=== PATIENT | female | born 1935 | race Caucasian/White ===

== ENCOUNTER → 2020-05-22 10:29 | Outpatient (CLI) | payer MEDICARE, OTHER, SELFPAY ==
--- NOTE | 2020-05-22 10:33 | DI.RAD.S_ITS ---
PROCEDURE: XR LUMBAR SPINE MIN 4V INDICATIONS: LOW BACK PAIN TECHNIQUE: 5 views of the lumbar spine were acquired. COMPARISON: None. FINDINGS: Bones: 5 nonrib-bearing vertebrae are present. Dextroscoliotic curvature centered at L3. Extensive multilevel degenerative disc space loss and lower lumbar facet arthropathy. No vertebral body compression fractures. No suspicious bony lesions. 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 Soft tissues: Overlying bowel gas pattern is normal. No suspicious soft tissue calcifications. Oblique images: No pars defects. IMPRESSION: Extensive degenerative disc disease and facet arthropathy. Dextrocurvature. No acute compression fractures. Dictated by: Robe Johnson M.D. on 05/22/2020 at 10:49 Approved by: Robe Johnson M.D. on 05/22/2020 at 10:54
== END ==
PROVIDERS: PCP Family Medicine; Referring Provider Physical Medicine & Rehabilitation; Visit Provider Physical Medicine & Rehabilitation
DX: M54.5 Low back pain (principal); M47.816 Spondylosis without myelopathy or radiculopathy, lumbar region; M51.36 Other intervertebral disc degeneration, lumbar region; M41.9 Scoliosis, unspecified
CPT/HCPCS: 72110; 99215

== ENCOUNTER → 2020-05-29 11:39 | Outpatient (CLI) | payer MEDICARE, OTHER, SELFPAY ==
[2020-05-31 08:21] LABS: COVID19 Sendout Not Detected (Not Detect)
== END ==
PROVIDERS: PCP Family Medicine; Visit Provider Physician Assistant
DX: Z11.59 Encounter for screening for other viral diseases (principal)
CPT/HCPCS: 87635

== ENCOUNTER 2020-06-01 10:17 | Outpatient (CLI) | payer MEDICARE, OTHER, SELFPAY ==
[2020-06-01] VITALS (9 sets, daily range): BP systolic 115–174; BP diastolic 56–75; PULSE 57–61; RESP 11–16; TEMP 35.9; O2SAT 94–98
--- NOTE | 2020-06-01 10:19 | DI.RAD.S_ITS ---
PROCEDURE: PAIN L/S FACET INJ/BLK 1ST KACEY COMPARISON: [facility], CR, XR LUMBAR SPINE MIN 4V, 05/22/2020, 10:22. Outside Facility, RG, MRI L-SPINE W/O CONTRAST, 03/21/2020, 11:16. Outside Facility, RG, CT L SPINE WITHOUT CONTRAST, 07/14/2019, 8:24. INDICATIONS: SPONDYLOSIS FINDINGS: 6 intraoperative fluoroscopy images demonstrate facet joint injection at L4-L5 and L5-S1 bilaterally. IMPRESSION: Fluoroscopy for pain management. Dictated by: Tania Perez M.D. on 06/01/2020 at 12:47 Approved by: Tania Perez M.D. on 06/01/2020 at 12:50
[2020-06-01] MEDS: fentaNYL 100 MCG/2 ML INJ 50 MCG IV (11:40)
[2020-06-01] MEDS: MIDAZOLAM 5 MG/5 ML VIAL IV (11:40)
[2020-06-01] MEDS: IOPAMIDOL 15 ML VIAL 3 ML INJ (11:45)
[2020-06-01] MEDS: BUPIVACAINE 0.5% (PF) VIAL 2 ML INJ (11:46)
[2020-06-01] MEDS: LIDOCAINE 1% 20 ML 10 ML INJ (11:46)
[2020-06-01] MEDS: BETAMETHASONE 30 MG/5 ML MDV 12 MG INJ (11:46)
--- NOTE | 2020-06-01 11:57 | P.PCN_ITS ---
Date/Time/Diagnoses Date of procedure: 06/01/20 Time of procedure: 11:57 Pre-procedure diagnosis: 1. FACET ARTHROPATHY 2. AXIAL LBP 3. MULTILEVEL DDD Post-procedure diagnosis: same Procedure Notes Procedure: 1. FLUOROSCOPICALLY GUIDED CONTRAST CONTROLLED FACET JOINT INJECTIONS BILATERAL L4/5, L5/S1 Indications: Chrissie is referred by Dr. Piedra for treatment of Axial LBP Physician: Prabhakar Lucio Total Fluoroscopy time (seconds): 10 Total sedation minutes: 14 Complications: none Procedure in detail & Post-procedure care: FINDINGS Multilevel Facet Arthropathy with Clinically significant axial LBP DESCRIPTION OF PROCEDURE Fluoroscopically guided, contrast-controlled bilateral L4/5, L5/S1 facet joint injections. Following review of allergy and review of potential side effects and complications, including, but not necessarily limited to, infection, allergic reaction, local tissue breakdown, stroke, temporary or permanent nerve injury, paralysis, and possible , the patient indicated that the patient understood and agreed to proceed. An informed consent document was signed by the patient, witnessed by a nurse, and placed in the patient's chart. Additionally, other treatment options including medications, modalities, and physical therapy were reviewed with the patient. After review of previous anaesthesic history and IV conscious sedation the patient was deemed safe to proceed with today?s procedure with IV conscious sedation as ASA class II designation. Safety time-out was performed to confirm patient ID, procedure to be performed and site of procedure. IV sedation was accomplished with a combination of 3mg of Versed and 50mcg of Fentanyl was administered by the RN after DO order, titrated to patient comfort during the course of the procedure while the patient remained responsive to all verbal commands In the prone position, following sterile prep and drape of the lumbar region, the posterior aspect of the L4/5, L5/S1 facet joints were identified fluoroscopically. The skin was anesthetized via a 25-gauge 1.5inch needle with 1% lidocaine solution into the corresponding facet joints. At this point, a 22- gauge 3.5-inch spinal needle was atraumatically introduced and advanced under fluoroscopic guidance into the corresponding facet joints. Following negative aspiration, injections of approximately 0.2cc of Isovue 200 confirmed inte rarticular placement without vascular uptake. The identical procedure was then performed at the L4/5, L5/S1 facet joints on the left. Radiological data, including multiple fluoroscopic views of the lumbosacral spine, reveal a spinal needle at the L4/5, L5/S1 facet joints bilaterally. Subsequent views show flow of contrast material both superiorly and inferiorly within the joint space without vascular or intrathecal uptake. At this point, a total of 0.5cc including a mixture of 0.25cc Marcaine and 0.25cc betamethasone was injected without complication into each of the corresponding facet joints. The patient tolerated the procedure well without signs or symptoms of complications prior to transfer to the recovery area continued monitoring without incident. The patient was then transferred to the recovery area where they were observed for an appropriate period of time after the injection. The patient reported a VAS score of 7 prior to the procedure and a post- procedure VAS of 0. POST OP INSTRUCTIONS The patient was provided a Pain Log to continue to record their response to the target-specific procedure prior to follow-up visit with their referring physician. Additionally, specific post-injection care instructions and a contact number to our office were provided if concerns arise regarding possible complications associated with the procedure are suspected.
== END 2020-06-01 12:32 | disposition home or self-care (01) ==
PROVIDERS: PCP Family Medicine; Referring Provider Physical Medicine & Rehabilitation; Visit Provider Physical Medicine & Rehabilitation
DX: M47.816 Spondylosis without myelopathy or radiculopathy, lumbar region (principal); M47.817 Spondylosis without myelopathy or radiculopathy, lumbosacral region; M54.5 Low back pain; M51.36 Other intervertebral disc degeneration, lumbar region; M51.37 Other intervertebral disc degeneration, lumbosacral region
CPT/HCPCS: 64493; 64494; 99152; J0702; J2250; J3010

== ENCOUNTER → 2020-09-18 14:39 | Outpatient (CLI) | payer MEDICARE, OTHER, SELFPAY ==
[2020-09-18 16:52] LABS: COVID19 -Nasal RAPID Negative (Negative)
== END ==
PROVIDERS: PCP Family Medicine; Visit Provider Physical Medicine & Rehabilitation
DX: Z20.822 Contact with and (suspected) exposure to COVID-19 (principal)
CPT/HCPCS: 87635; C9803

== ENCOUNTER 2020-09-19 12:30 | Outpatient (CLI) | payer MEDICARE, OTHER, SELFPAY ==
[2020-09-19] VITALS (8 sets, daily range): BP systolic 122–207; BP diastolic 58–78; PULSE 60–64; RESP 12–20; TEMP 36.9; O2SAT 96–100
--- NOTE | 2020-09-19 12:32 | DI.RAD.S_ITS ---
PROCEDURE: PAIN SI JOINT INJECTION KACYE COMPARISON: None. INDICATIONS: SACROCOCYGEAL DISORDER FINDINGS: On these intraprocedural images, spinal needles can be seen involving the inferior aspects of both sacroiliac joints. The appropriate positions of the tips of the needles was confirmed by injection of a small amount of iodinated contrast. IMPRESSION: Intraprocedural examination within normal limits. Dictated by: Feroz Saucedo M.D. on 09/19/2020 at 13:14 Approved by: Feroz Saucedo M.D. on 09/19/2020 at 13:15
[2020-09-19] MEDS: MIDAZOLAM 5 MG/5 ML VIAL IV (13:10)
[2020-09-19] MEDS: fentaNYL 100 MCG/2 ML INJ 50 MCG IV (13:10)
[2020-09-19] MEDS: BUPIVACAINE 0.5% (PF) VIAL 5 ML INJ (13:20)
[2020-09-19] MEDS: IOPAMIDOL 15 ML VIAL 3 ML INJ (13:22)
[2020-09-19] MEDS: BETAMETHASONE 30 MG/5 ML MDV 12 MG INJ (13:22)
--- NOTE | 2020-09-19 13:29 | PM.PROC.IR.1 ---
Date/Time/Diagnoses Date of procedure: 09/19/20 Time of procedure: 13:29 Pre-procedure diagnosis: Sacroiliac joint pain/DJD Post-procedure diagnosis: same Procedure Notes Procedure: Fluoroscopic guided contrast controlled bilateral sacroiliac joint injection Indications: Chrissie is referred by Dr. Piedra for treatment of bilateral sacroiliac joint DJD Physician: Prabhakar Lucio Total Fluoroscopy time (seconds): 18 Total sedation minutes: 16 Complications: none Procedure in detail & Post-procedure care: Description of procedure Fluoroscopic guided, contrast controlled bilateral sacroiliac joint injection Following review of allergies and review of potential side effects and complications, including, but not necessarily limited to, infection, allergic reaction, local tissue breakdown, temporary as well as permanent nerve injury, paralysis, stroke and possible , the patient indicated that they understood and agreed to proceed. An informed consent was signed by the patient, witnessed by a nurse, and placed in the patient's chart. Additionally, other treatment options including modalities, medications, and physical therapy were reviewed with the patient. After review of previous anaesthesic history and IV conscious sedation the patient was deemed safe to proceed with today?s procedure with IV conscious sedation as ASA class II designation. Safety time-out was performed to confirm patient ID, procedure to be performed and site of procedure. IV sedation was accomplished with a combination of 2mg Versed and 50mcg of Fentanyl were administered by the RN after DO order, titrated to patient comfort during the course of the procedure while the patient remained responsive to all verbal commands In the prone position following sterile prep and drape of the pelvic region, the hyper lucency on in the inferior aspect of the sacroiliac joint was identified fluoroscopically the skin was anesthetized be a 25 gauge 1.5 inch needle with approximately 2cc of 1% lidocaine solution. At this point, a 22 gauge 3 in spinal needle was atraumatically introduced and advanced under fluoroscopic guidance into the inferior aspect of the right sacroiliac joint. Following negative aspiration, approximately 0.3cc of Isovue-300 was injected confirming intra-articular placement without vascular uptake. Radiographic data, including multiple fluoroscopic views of the pelvis, reveals a spinal needle in the sacroiliac joint hyper lucent zone. Subsequent view show flow contrast tear superiorly and inferiorly within the joint capsule without vascular intrathecal uptake. At this point a total of 1cc of 0.5% Marcaine was combined with 1cc of 6mg of betamethasone was injected without incident. Attention was then refocused the left sacroiliac joint where the procedure was replicated. The procedure tolerated the procedure well without signs or symptoms of complications prior to transfer to the recovery area continued monitoring without incident. The patient was then transferred to the recovery area with a bur observed for an appropriate time after the injection. The patient reverted a vas score of 7 prior to the procedure and post-procedure vas of 1. Postop instructions The patient was provided with a pain like to continue to record the patient's response to the target specific procedure prior to the patient's follow-up visit with the referring physician. Additionally, specific post injection care instructions and a contact number to our office were provided if concerns arise regarding the possible complications associated with procedure are suspected.
== END 2020-09-19 13:50 | disposition home or self-care (01) ==
LOC: RAD 12:30
PROVIDERS: PCP Family Medicine; Referring Provider Physical Medicine & Rehabilitation; Visit Provider Physical Medicine & Rehabilitation
DX: M53.3 Sacrococcygeal disorders, not elsewhere classified (principal); M46.1 Sacroiliitis, not elsewhere classified
CPT/HCPCS: 27096; 99152; J0702; J2250; J3010

== ENCOUNTER 2021-01-30 10:18 | Outpatient (CLI) | payer MEDICARE, OTHER, SELFPAY ==
[2021-01-30] VITALS (8 sets, daily range): BP systolic 105–149; BP diastolic 53–67; PULSE 56–63; RESP 11–20; TEMP 36.3; O2SAT 93–100
--- NOTE | 2021-01-30 10:19 | DI.RAD.S_ITS ---
PROCEDURE: PAIN L/S TRANSFORAMINAL INJECT INDICATIONS: SPONDYLOSIS COMPARISON: [facility], XA, PAIN SI JOINT INJECTION KACYE, 09/19/2020, 13:16. FINDINGS: Fluoroscopic spot filming was performed to verify placement of a spinal needle at the L5-S1 level, as labeled on the films. Appropriate location of the needle tip was confirmed by injection of iodinated contrast. IMPRESSION: No significant intraprocedural abnormality. Dictated by: Feroz Saucedo M.D. on 01/30/2021 at 11:08 Approved by: Feroz Saucedo M.D. on 01/30/2021 at 11:08
[2021-01-30] MEDS: fentaNYL 100 MCG/2 ML INJ 50 MCG IV (11:00)
[2021-01-30] MEDS: MIDAZOLAM 5 MG/5 ML VIAL IV (11:00)
[2021-01-30] MEDS: BUPIVACAINE 0.25% (PF) VIAL 2 ML INJ (11:05)
[2021-01-30] MEDS: IOPAMIDOL 15 ML VIAL 3 ML INJ (11:05)
[2021-01-30] MEDS: DEXAMETHASONE 10 MG/ML VIAL 20 MG INJ (11:05)
[2021-01-30] MEDS: BETAMETHASONE 30 MG/5 ML MDV 6 MG INJ (11:05)
--- NOTE | 2021-01-30 11:14 | P.PCN_ITS ---
Date/Time/Diagnoses Date of procedure: 01/30/21 Time of procedure: 11:14 Pre-procedure diagnosis: FORAMINAL STENOSIS WITH LE SYMPTOMS Post-procedure diagnosis: same Procedure Notes Procedure: 1. FLUOROSCOPICALLY GUIDED CONTRAST CONTROLLED TRANSFORAMINAL EPIDURAL STEROID INJECTION - RIGHT L5/S1 TFESI Indications: Chrissie is referred by Dr. Piedra for treatment of Foraminal Stenosis with Right LE Symptoms Physician: Prabhakar Lucio Total Fluoroscopy time (seconds): 11 Total sedation minutes: 14 Complications: none Procedure in detail & Post-procedure care: FINDINGS Foraminal Nerve Root Compression secondary to disc disease and facet hypertrophy DESCRIPTION OF PROCEDURE Following review of allergy and review of potential side effects and complications, including, but not necessarily limited to, infection, allergic reaction, local tissue breakdown, stroke, temporary or permanent nerve injury, paralysis, and possible , the patient indicated that the patient understood and agreed to proceed. An informed consent document was signed by the patient, witnessed by a nurse, and placed in the patient's chart. Additionally, other treatment options including medications, modalities, and physical therapy were reviewed with the patient. After review of previous anaesthesic history and IV conscious sedation the patient was deemed safe to proceed with today?s procedure with IV conscious sedation as ASA class II designation. Safety time-out was performed to confirm patient ID, procedure to be performed and site of procedure. IV sedation was accomplished with a combination of 2mg of Versed and 50mcg of Fentanyl was administered by the RN after DO order, titrated to patient comfort during the course of the procedure while the patient remained responsive to all verbal commands In the prone position following sterile prep and drape of the lumbar region, the right L5/S1 posterior neuroforamen was identified fluoroscopically. The skin was anesthetized via a 25-gauge 1.5-inch needle with 1% lidocaine solution. At this point, a 25-gauge 3.5-inch spinal needle was atraumatically introduced and advanced under fluoroscopic guidance through the posterior right L5/S1 neuroforamen to approximately the anterior aspect of the canal. Depth was confirmed on lateral view. Following negative aspiration, injection of approximately 1.5cc of Isovue 200 under live fluoroscopy in the AP view confirmed excellent flow along the nerve root, into the epidural space without vascular or intrathecal uptake observed Radiological data, including multiple fluoroscopic views of the lumbosacral spine, reveal a spinal needle at the right L5/S1 posterior neuroforamen. Subsequent views show flow of contrast material flowing superiorly and inferiorly along the nerve root confirming epidural flow. Subsequently, a test dose of 1.5 cc of 1% lidocaine solution was administered and patient was observed for two minutes for signs or symptoms of complications, including abdominal pain, shortness of breath, bilateral upper or lower extremity weakness, nausea and vomiting, prior to steroid injection. At this point, a total of 3cc or 20mg of dexamethasone and 6mg of betamethasone was injected without incident. The procedure tolerated the procedure well without signs or symptoms of complications prior to transfer to the recovery area continued monitoring without incident. The patient was then transferred to the recovery area where they were observed for an appropriate time after the injection. The patient reported a VAS score of 7 prior to the procedure and a post- procedure VAS of 0. POST OP INSTRUCTIONS The patient was provided a Pain Log to continue to record their response to the target-specific procedure prior to follow-up visit with their referring physician. Additionally, specific post-injection care instructions and a contact number to our office were provided if concerns arise regarding possible complications associated with the procedure are suspected.
== END 2021-01-30 11:35 | disposition home or self-care (01) ==
LOC: RAD 10:19
PROVIDERS: PCP Family Medicine; Referring Provider Physical Medicine & Rehabilitation; Visit Provider Physical Medicine & Rehabilitation
DX: M48.07 Spinal stenosis, lumbosacral region (principal); M51.17 Intervertebral disc disorders with radiculopathy, lumbosacral region
CPT/HCPCS: 64483; 99152; J0702; J1100; J2250; J3010

== ENCOUNTER 2021-05-31 10:14 | Outpatient (CLI) | payer MEDICARE, OTHER, SELFPAY ==
[2021-05-31] VITALS (9 sets, daily range): BP systolic 96–142; BP diastolic 52–65; PULSE 59–62; RESP 10–19; TEMP 36.6; O2SAT 93–100
--- NOTE | 2021-05-31 10:15 | DI.RAD.S_ITS ---
PROCEDURE: PAIN L INTERLAMINAR/CAUDAL INJ INDICATIONS: SPONDYLOSIS COMPARISON: [facility], , PAIN L/S TRANSFORAMINAL INJECT, 01/30/2021, 11:02. FINDINGS: Fluoroscopic spot filming was performed to verify placement of a spinal needle on the right at the L2-L3 level, as labeled on the films. Appropriate location of the needle tip was confirmed by injection of iodinated contrast. IMPRESSION: Intraprocedural examination within normal limits. Dictated by: Feroz Saucedo M.D. on 05/31/2021 at 11:52 Approved by: Feroz Saucedo M.D. on 05/31/2021 at 11:53
[2021-05-31] MEDS: MIDAZOLAM 5 MG/5 ML VIAL IV (11:20)
[2021-05-31] MEDS: fentaNYL 100 MCG/2 ML INJ 50 MCG IV (11:20)
[2021-05-31] MEDS: BUPIVACAINE 0.25% (PF) VIAL 2 ML INJ (11:23)
[2021-05-31] MEDS: IOPAMIDOL 15 ML VIAL 3 ML INJ (11:24)
[2021-05-31] MEDS: BETAMETHASONE 30 MG/5 ML MDV 6 MG INJ (11:24)
[2021-05-31] MEDS: DEXAMETHASONE 10 MG/ML VIAL 20 MG INJ (11:25)
--- NOTE | 2021-05-31 11:30 | P.PCN_ITS ---
Date/Time/Diagnoses Date of procedure: 05/31/21 Time of procedure: 11:30 Pre-procedure diagnosis: 1. HNP WITH RADICULAR FEATURES, 2. MULTILEVEL CENTRAL STENOSIS, Post-procedure diagnosis: same Procedure Notes Procedure: 1. FLUOROSCOPICALLY GUIDED CONTRAST CONTROLLED INTERLAMINAR EPIDURAL STEROID INJECTION - L2/3 Indications: Chrissie is referred by Dr. Piedra for treatment of Bilateral Foraminal Stenosis L>R LE symptoms. Physician: Prabhakar Lucio Total Fluoroscopy time (seconds): 8 Total sedation minutes: 7 Complications: none Procedure in detail & Post-procedure care: FINDINGS Multilevel Central Spinal Stenosis with Nerve Root Compression DESCRIPTION OF PROCEDURE Fluoroscopically guided, contrast-controlled L2/3 translaminar epidural steroid injection. Following review of allergy and review of potential side effects and complications, including, but not necessarily limited to, infection, allergic reaction, local tissue breakdown, temporary as well as permanent nerve injury, paralysis, stroke and possible , the patient indicated that the patient understood and agreed to proceed. An informed consent document was signed by the patient, witnessed by a nurse, and placed in the patient's chart. Additionally, other treatment options including modalities, medications, and physical therapy were reviewed with the patient. After review of previous anaesthesic history and IV conscious sedation the patient was deemed safe to proceed with today?s procedure with IV conscious sedation as ASA class II designation. Safety time-out was performed to confirm patient ID, procedure to be performed and site of procedure. IV sedation was accomplished with a combination of 2mg Versed and 50mcg of Fentanyl administered by the RN after DO order, titrated to patient comfort during the course of the procedure while the patient remained responsive to all verbal commands. In the prone position, following sterile prep and drape of the lumbar region,the L2/3 translaminar space was identified fluoroscopically. The skin was anesthetized via a 25-gauge, 1.5-inch needle with 1% lidocaine solution. At this point, a 22-gauge short bevel spinal needle was atraumatically introduced and advanced under fluoroscopic guidance into the region of the L2/3 translaminar space. Depth was confirmed on lateral view. Radiological data, including multiple fluoroscopic views of the lumbar spine, reveal a spinal needle at the L2/3 translaminar space. Lateral views then show placement of the needle in the epidural space. Subsequent views show contrast material flowing superiorly and inferiorly in the epidural space. No vascular or intrathecal uptake is observed. At this point, using loss of resistance technique with saline and air, the epidural space was entered. This was confirmed following negative aspiration with injection of approximately 1.5 cc of Isovue 200, showing excellent epidural flow without vascular or intrathecal uptake. At this point, 1 cc of 1% lidocaine solution combined with 4cc or 20mg of dexamethasone and 12mg of betamethasone was injected without incident. The patient tolerated the procedure well without signs or symptoms of complic ations prior to transfer to the recovery area continued monitoring without incident. The patient was then transferred to the recovery area where they were observed for an appropriate period of time after the injection. The patient reported a VAS score of 6 prior to the procedure and a post-procedure VAS of 0. POST OP INSTRUCTIONS The patient was provided a Pain Log to continue to record their response to the target-specific procedure prior to follow-up visit with their referring physician. Additionally, specific post-injection care instructions and a contact number to our office were provided if concerns arise regarding possible complications associated with the procedure are suspected.
== END 2021-05-31 11:55 | disposition home or self-care (01) ==
LOC: RAD 10:15
PROVIDERS: PCP Family Medicine; Referring Provider Physical Medicine & Rehabilitation; Visit Provider Physical Medicine & Rehabilitation
DX: M51.16 Intervertebral disc disorders with radiculopathy, lumbar region (principal); M48.061 Spinal stenosis, lumbar region without neurogenic claudication
CPT/HCPCS: 62323; J0702; J1100; J2250; J3010

== ENCOUNTER → 2021-12-10 09:29 | Outpatient (CLI) | payer MEDICARE, OTHER, SELFPAY ==
[2021-12-10 12:23] LABS: COVID19 -Nasal RAPID Negative (Negative)
== END ==
PROVIDERS: PCP Family Medicine; Visit Provider Physical Medicine & Rehabilitation
DX: Z20.822 Contact with and (suspected) exposure to COVID-19 (principal)
CPT/HCPCS: 87635; C9803

== ENCOUNTER 2021-12-11 08:09 | Outpatient (CLI) | payer MEDICARE, OTHER, SELFPAY ==
[2021-12-11] VITALS (8 sets, daily range): BP systolic 116–162; BP diastolic 55–86; PULSE 55–61; RESP 16–20; TEMP 36.7; O2SAT 98–100
--- NOTE | 2021-12-11 08:11 | DI.RAD.S_ITS ---
PROCEDURE: PAIN L/S TRANSFORAMINAL INJECT INDICATIONS: SPONDYLOSIS COMPARISON: None. FINDINGS: Fluoroscopic spot filming was performed to verify placement of spinal needles at the right L5-S1 neural foramen level(s), as labeled on the films. Appropriate location(s) of the needle tip(s) was confirmed by injection of iodinated contrast. IMPRESSION: Access needle tip at the right L5-S1 neural foramen for transforaminal epidural steroid injection. Dictated by: Chanda Arellano MD, PhD on 12/11/2021 at 12:31 Approved by: Chanda Arellano MD, PhD on 12/11/2021 at 12:32
[2021-12-11] MEDS: MIDAZOLAM 2 MG/2 ML VIAL IV (09:37)
[2021-12-11] MEDS: IOPAMIDOL 15 ML VIAL 3 ML INJ (09:41)
[2021-12-11] MEDS: BUPIVACAINE 0.25% (PF) VIAL 2 ML INJ (09:41)
[2021-12-11] MEDS: BETAMETHASONE 30 MG/5 ML MDV 6 MG INJ (09:41)
[2021-12-11] MEDS: DEXAMETHASONE 10 MG/ML VIAL 20 MG INJ (09:42)
--- NOTE | 2021-12-11 09:55 | P.PCN_ITS ---
Date/Time/Diagnoses Date of procedure: 12/11/21 Time of procedure: 09:55 Pre-procedure diagnosis: FORAMINAL STENOSIS WITH LE SYMPTOMS Post-procedure diagnosis: same Procedure Notes Procedure: 1. FLUOROSCOPICALLY GUIDED CONTRAST CONTROLLED TRANSFORAMINAL EPIDURAL STEROID INJECTION - RIGHT L5/S1 TFESI Indications: Chrissie is referred by Dr. Piedra for treatment of Foraminal Stenosis with Right LE Symptoms Physician: Prabhakar Lucio Total Fluoroscopy time (seconds): 8 Total sedation minutes: 11 Complications: none Procedure in detail & Post-procedure care: FINDINGS Foraminal Nerve Root Compression secondary to disc disease and facet hypertrophy DESCRIPTION OF PROCEDURE Following review of allergy and review of potential side effects and complications, including, but not necessarily limited to, infection, allergic r eaction, local tissue breakdown, stroke, temporary or permanent nerve injury, paralysis, and possible , the patient indicated that the patient understood and agreed to proceed. An informed consent document was signed by the patient, witnessed by a nurse, and placed in the patient's chart. Additionally, other treatment options including medications, modalities, and physical therapy were reviewed with the patient. After review of previous anaesthesic history and IV conscious sedation the patient was deemed safe to proceed with today?s procedure with IV conscious sedation as ASA class II designation. Safety time-out was performed to confirm patient ID, procedure to be performed and site of procedure. IV sedation was accomplished with a combination of 2mg of Versed was administered by the RN after DO order, titrated to patient comfort during the course of the procedure while the patient remained responsive to all verbal commands In the prone position following sterile prep and drape of the lumbar region, the right L5/S1 posterior neuroforamen was identified fluoroscopically. The skin was anesthetized via a 25-gauge 1.5-inch needle with 1% lidocaine solution. At this point, a 25-gauge 3.5-inch spinal needle was atraumatically introduced and advanced under fluoroscopic guidance through the posterior right L5/S1 neuroforamen to approximately the anterior aspect of the canal. Depth was confirmed on lateral view. Following negative aspiration, injection of approximately 1.5cc of Isovue 200 under live fluoroscopy in the AP view confirmed excellent flow along the nerve root, into the epidural space without vascular or intrathecal uptake observed Radiological data, including multiple fluoroscopic views of the lumbosacral spine, reveal a spinal needle at the right L5/S1 posterior neuroforamen. Subsequent views show flow of contrast material flowing superiorly and inferiorly along the nerve root confirming epidural flow. Subsequently, a test dose of 1.5 cc of 1% lidocaine solution was administered and patient was observed for two minutes for signs or symptoms of complications, including abdominal pain, shortness of breath, bilateral upper or lower extre mity weakness, nausea and vomiting, prior to steroid injection. At this point, a total of 3cc or 20mg of dexamethasone and 6mg of betamethasone was injected without incident. The procedure tolerated the procedure well without signs or symptoms of complications prior to transfer to the recovery area continued monitoring without incident. The patient was then transferred to the recovery area where they were observed for an appropriate time after the injection. The patient reported a VAS score of 7 prior to the procedure and a post- procedure VAS of 0. POST OP INSTRUCTIONS The patient was provided a Pain Log to continue to record their response to the target-specific procedure prior to follow-up visit with their referring physician. Additionally, specific post-injection care instructions and a contact number to our office were provided if concerns arise regarding possible complications associated with the procedure are suspected.
== END 2021-12-11 10:15 | disposition home or self-care (01) ==
LOC: RAD 08:10
PROVIDERS: PCP Family Medicine; Referring Provider Physical Medicine & Rehabilitation; Visit Provider Physical Medicine & Rehabilitation
DX: M48.07 Spinal stenosis, lumbosacral region (principal); M51.17 Intervertebral disc disorders with radiculopathy, lumbosacral region
CPT/HCPCS: 64483; 99152; J0702; J1100; J2250

== ENCOUNTER 2022-08-08 10:16 | Outpatient (CLI) | payer MEDICARE, OTHER, SELFPAY ==
[2022-08-08] VITALS (7 sets, daily range): BP systolic 122–164; BP diastolic 59–80; PULSE 59–63; RESP 13–20; TEMP 35.9; O2SAT 96–100
--- NOTE | 2022-08-08 10:18 | DI.RAD.S_ITS ---
PROCEDURE: PAIN SI JOINT INJECTION INDICATIONS: SACROILIAC DISORDER COMPARISON: [facility], XR LUMBAR SPINE MIN 4V, 05/22/2020, 10:22. Outside Facility, [facility], MRI L-SPINE W/O CONTRAST, 11/19/2020, 15:26. FINDINGS: Fluoroscopic spot filming was performed to verify placement of spinal needles at the right SI level(s), as labeled on the films. Appropriate location(s) of the needle tip(s) was confirmed by injection of iodinated contrast. IMPRESSION: Fluoroscopy for pain management. Dictated by: Tania Perez M.D. on 08/08/2022 at 15:17 Approved by: Tania Perez M.D. on 08/08/2022 at 15:19
[2022-08-08] MEDS: MIDAZOLAM 2 MG/2 ML VIAL IV (11:31)
[2022-08-08] MEDS: IOPAMIDOL 15 ML VIAL 3 ML INJ (11:37)
[2022-08-08] MEDS: BETAMETHASONE 30 MG/5 ML MDV 12 MG INJ (11:37)
[2022-08-08] MEDS: BUPIVACAINE 0.5% (PF) 30 ML VIAL INJ (11:37)
--- NOTE | 2022-08-08 11:47 | P.PCN_ITS ---
Date/Time/Diagnoses Date of procedure: 08/08/22 Time of procedure: 11:50 Pre-procedure diagnosis: Sacroiliac joint pain/DJD Post-procedure diagnosis: same Procedure Notes Procedure: Fluoroscopically guided contrast controlled right sacroiliac joint injection Indications: Chrissie is referred by WILLIAM Salazar for treatment of right sacroiliac joint DJD Physician: Prabhakar Lucio Total Fluoroscopy time (seconds): 12 Total sedation minutes: 10 Complications: none Procedure in detail & Post-procedure care: DESCRIPTION OF PROCEDURE Fluoroscopically guided, contrast controlled right sacroiliac joint injection Following review of allergies and review of potential side effects and complications, including, but not necessarily limited to, infection, allergic reaction, local tissue breakdown, temporary as well as permanent nerve injury, paralysis, stroke and possible , the patient indicated that they understood and agreed to proceed. An informed consent was signed by the patient, witnessed by a nurse, and placed in the patient's chart. Additionally, other treatment options including modalities, medications, and physical therapy were reviewed with the patient. After review of previous anaesthesic history and IV conscious sedation the patient was deemed safe to proceed with today?s procedure with IV conscious sedation as ASA class II designation. Safety time-out was performed to confirm patient ID, procedure to be performed and site of procedure. IV sedation was accomplished with a combination of 2mg of Versed was administered by the RN after DO order, titrated to patient comfort during the course of the procedure while the patient remained responsive to all verbal commands In the prone position following sterile prep and drape of the pelvic region, the hyper lucency on in the inferior aspect of the sacroiliac joint was identified fluoroscopically the skin was anesthetized with a 25 gauge 1.5 needle with approximately 2 cc of 1% lidocaine solution. At this point, a 22 gauge 3in spi nal needle was atraumatically introduced and advanced under fluoroscopic guidance into the inferior aspect of the right sacroiliac joint. Following negative aspiration, approximately 0.3cc of Isovue-300 was injected confirming intra-articular placement without vascular uptake. Radiographic data, including multiple fluoroscopic views of the pelvis, reveals a spinal needle in the sacroiliac joint hyper lucent zone. Subsequent view show flow contrast tear superiorly and inferiorly within the joint capsule without vascular intrathecal uptake. At this point a total of 1cc of 0.5% Marcaine was combined with 1cc of 6mg of betamethasone was injected without incident. The procedure tolerated the procedure well without signs or symptoms of complications prior to transfer to the recovery area continued monitoring without incident. The patient was then transferred to the recovery area with a bur observed for an appropriate time after the injection. The patient reverted a vas score of 7 prior to the procedure and post-procedure vas of 1. POSTOP INSTRUCTIONS The patient was provided with a pain like to continue to record the patient's response to the target specific procedure prior to the patient's follow-up visit with the referring physician. Additionally, specific post injection care instructions and a contact number to our office were provided if concerns arise regarding the possible complications associated with procedure are suspected.
== END 2022-08-08 12:04 | disposition home or self-care (01) ==
LOC: RAD 10:17
PROVIDERS: PCP Physician Assistant; Referring Provider Physical Medicine & Rehabilitation; Visit Provider Physical Medicine & Rehabilitation
DX: M53.3 Sacrococcygeal disorders, not elsewhere classified (principal); M46.1 Sacroiliitis, not elsewhere classified
CPT/HCPCS: 27096; 99152; J0702; J2250

== ENCOUNTER 2022-12-19 09:53 | Outpatient (CLI) | payer MEDICARE, OTHER, SELFPAY ==
[2022-12-19] VITALS (7 sets, daily range): BP systolic 129–165; BP diastolic 58–102; PULSE 61–66; RESP 15–22; TEMP 36.5; O2SAT 95–99
--- NOTE | 2022-12-19 09:54 | DI.RAD.S_ITS ---
PROCEDURE: PAIN SI JOINT INJECTION INDICATIONS: SACROILIAC DISORDER COMPARISON: [facility], , PAIN SI JOINT INJECTION, 08/08/2022, 12:35. FINDINGS: On these intraprocedural images, there is a spinal needle seen overlying the inferior aspect of the right sacroiliac joint. Appropriate position of the tip of the needle was confirmed by injection of a small amount of iodinated contrast. IMPRESSION: Successful sacroiliac joint injection. Dictated by: Feroz Saucedo M.D. on 12/19/2022 at 18:24 Approved by: Feroz Saucedo M.D. on 12/19/2022 at 18:24
[2022-12-19] MEDS: MIDAZOLAM 2 MG/2 ML VIAL IV (11:06)
[2022-12-19] MEDS: BETAMETHASONE 30 MG/5 ML MDV 12 MG INJ (11:16)
[2022-12-19] MEDS: BUPIVACAINE 0.5% (PF) 10 ML VIAL 2 ML INJ (11:16)
[2022-12-19] MEDS: IOPAMIDOL 15 ML VIAL 3 ML INJ (11:17)
--- NOTE | 2022-12-19 11:18 | PM.PROC.IR.1 ---
Date/Time/Diagnoses Date of procedure: 12/19/22 Time of procedure: 11:18 Pre-procedure diagnosis: Sacroiliac joint pain/DJD Post-procedure diagnosis: same Procedure Notes Procedure: Fluoroscopically guided contrast controlled right sacroiliac joint injection Indications: Chrissie is referred by WILLIAM Salazar for treatment of right sacroiliac joint DJD Physician: Prabhakar Lucio Total Fluoroscopy time (seconds): 7 Total sedation minutes: 10 Complications: none Procedure in detail & Post-procedure care: DESCRIPTION OF PROCEDURE Fluoroscopically guided, contrast controlled right sacroiliac joint injection Following review of allergies and review of potential side effects and complications, including, but not necessarily limited to, infection, allergic reaction, local tissue breakdown, temporary as well as permanent nerve injury, paralysis, stroke and possible , the patient indicated that they understood and agreed to proceed. An informed consent was signed by the patient, witnessed by a nurse, and placed in the patient's chart. Additionally, other treatment options including modalities, medications, and physical therapy were reviewed with the patient. After review of previous anaesthesic history and IV conscious sedation the patient was deemed safe to proceed with today?s procedure with IV conscious sedation as ASA class II designation. Safety time-out was performed to confirm patient ID, procedure to be performed and site of procedure. IV sedation was accomplished with a combination of 2mg of Versed was administered by the RN after DO order, titrated to patient comfort during the course of the procedure while the patient remained responsive to all verbal commands In the prone position following sterile prep and drape of the pelvic region, the hyper lucency on in the inferior aspect of the sacroiliac joint was identified fluoroscopically the skin was anesthetized be a 25 gauge 1 eventual with approximately 2 cc of 1% lidocaine solution. At this point, a 22 gauge 3 in spinal needle was atraumatically introduced and advanced under fluoroscopic guidance into the inferior aspect of the right sacroiliac joint. Following negative aspiration, approximately 0.3cc of Isovue-300 was injected confirming intra-articular placement without vascular uptake. Radiographic data, including multiple fluoroscopic views of the pelvis, reveals a spinal needle in the sacroiliac joint hyper lucent zone. Subsequent view show flow contrast tear superiorly and inferiorly within the joint capsule without vascular intrathecal uptake. At this point a total of 1cc of 0.5% Marcaine was combined with 1cc of 6 mg of betamethasone was injected without incident. The procedure tolerated the procedure well without signs or symptoms of complications prior to transfer to the recovery area continued monitoring without incident. The patient was then transferred to the recovery area with a bur observed for an appropriate time after the injection. The patient reverted a vas score of 7 prior to the procedure and post-procedure vas of 1. POSTOP INSTRUCTIONS The patient was provided with a pain like to continue to record the patient's response to the target specific procedure prior to the patient's follow-up visit with the referring physician. Additionally, specific post injection care instructions and a contact number to our office were provided if concerns arise regarding the possible complications associated with procedure are suspected.
== END 2022-12-19 11:36 | disposition home or self-care (01) ==
LOC: RAD 09:54
PROVIDERS: PCP Physician Assistant; Referring Provider Physical Medicine & Rehabilitation; Visit Provider Physical Medicine & Rehabilitation
DX: M53.3 Sacrococcygeal disorders, not elsewhere classified (principal)
CPT/HCPCS: 27096; J0702; J2250

== ENCOUNTER → 2023-01-15 14:32 | Outpatient (CLI) | payer MEDICARE, OTHER, SELFPAY ==
--- NOTE | 2023-01-15 14:34 | DI.RAD.S_ITS ---
PROCEDURE: XR SHOULDER LT MIN 2V INDICATIONS: LEFT SHOULDER PAIN TECHNIQUE: 3 views of the shoulder were acquired. COMPARISON: None. FINDINGS: Bones: No fractures or dislocations. Mild acromioclavicular joint and glenohumeral joint osteoarthritic changes are seen. No suspicious bony lesions. Visualized ribs appear intact. Soft tissues: No suspicious soft tissue calcifications. IMPRESSION: No acute shoulder fracture or dislocation. Mild left shoulder joint osteoarthritis. No gross soft tissue abnormalities. Dictated by: Timo Vieyra M.D. on 01/15/2023 at 16:05 Approved by: Timo Vieyra M.D. on 01/15/2023 at 16:05
--- NOTE | 2023-01-15 14:34 | DI.RAD.S_ITS ---
PROCEDURE: XR LUMBAR SPINE MIN 4V INDICATIONS: BACK PAIN TECHNIQUE: 5 views of the lumbar spine were acquired, including bilateral oblique views. COMPARISON: [facility], , XR LUMBAR SPINE MIN 4V, 05/22/2020, 10:22. FINDINGS: Bones: 5 nonrib-bearing vertebrae are present. There is normal bony alignment. No vertebral body compression fractures. No suspicious bony lesions. Rightward curvature of the lumbar spine with a Esteves angle of 24?. Bilateral hip replacements. Multilevel degenerative changes with multilevel disc disease. Endplate sclerosis at L2-3. Facet arthrosis at multiple levels. Soft tissues: Overlying bowel gas pattern is normal. No suspicious soft tissue calcifications. Oblique images: No pars defects. IMPRESSION: 1. Multilevel degenerative changes of the lumbar spine with dextroscoliosis. 2. Multilevel disc disease and facet arthrosis. 3. No acute abnormality. Dictated by: Dane Brody M.D. on 01/15/2023 at 16:20 Approved by: Dane Brody M.D. on 01/15/2023 at 16:23
== END ==
PROVIDERS: PCP Physician Assistant; Referring Provider Physical Medicine & Rehabilitation; Visit Provider Physical Medicine & Rehabilitation
DX: M51.16 Intervertebral disc disorders with radiculopathy, lumbar region (principal); M47.26 Other spondylosis with radiculopathy, lumbar region; M41.9 Scoliosis, unspecified; M19.012 Primary osteoarthritis, left shoulder; M75.42 Impingement syndrome of left shoulder; M54.50 Low back pain, unspecified
CPT/HCPCS: 72110; 73030; 99215

== ENCOUNTER 2023-08-05 09:49 | Outpatient (CLI) | payer MEDICARE, OTHER, SELFPAY ==
[2023-08-05] VITALS (8 sets, daily range): BP systolic 131–187; BP diastolic 59–82; PULSE 58–79; RESP 14–20; TEMP 36.6; O2SAT 96–100
--- NOTE | 2023-08-05 10:15 | DI.RAD.S_ITS ---
PROCEDURE: PAIN L/SI FACET INJ/BLK 1STL INDICATIONS: FACET ARTHROPATHY COMPARISON: [facility], MR, MR LUMBAR SPINE WITHOUT CONTRAST, 02/07/2023, 11:10. [facility], CR, XR LUMBAR SPINE MIN 4V, 01/15/2023, 14:30. FINDINGS: Fluoroscopic spot filming was performed to verify placement of spinal needles at the right L4, L5 and S1 level(s), as labeled on the films. Appropriate location(s) of the needle tip(s) was confirmed by injection of iodinated contrast. IMPRESSION: Fluoroscopy guidance for pain management. Dictated by: Tania Perez M.D. on 08/05/2023 at 13:28 Approved by: Tania Perez M.D. on 08/05/2023 at 13:29
[2023-08-05] MEDS: MIDAZOLAM 2 MG/2 ML VIAL IV (10:52)
[2023-08-05] MEDS: BUPIVACAINE 0.5% (PF) 10 ML VIAL 2 ML INJ (10:59)
[2023-08-05] MEDS: iopamidoL 15 ML VIAL 3 ML INJ (10:59)
--- NOTE | 2023-08-05 11:06 | PM.PROC.IR.1 ---
Date/Time/Diagnoses Date of procedure: 08/05/23 Time of procedure: 11:06 Pre-procedure diagnosis: 1. FACET ARTHROPATHY Post-procedure diagnosis: same Procedure Notes Procedure: 1. Right L4, L5 and S1 MB BLOCKS LA Indications: Chrissie is referred by WILLIAM Salazar for treatment of Right Axial LBP. Physician: Prabhakar Lucio Total Fluoroscopy time (seconds): 10 Total sedation minutes: 10 Complications: none Procedure in detail & Post-procedure care: DESCRIPTION OF PROCEDURE Fluoroscopically guided, contrast-controlled right L4, L5 and S1 medial branch blocks with 0.5cc of 0.5% Marcaine. Following review of allergy and review of potential side effects and complications, including, but not necessarily limited to, infection, allergic reaction, local tissue breakdown, nerve injury, paralysis, stroke and possible , the patient indicated that the patient understood and agreed to proceed. An informed consent document was signed by the patient, witnessed by a nurse, and placed in the patient's chart. After review of previous anaesthesic history and IV conscious sedation the patient was deemed safe to proceed with today?s procedure with IV conscious sedation as ASA class II designation. Safety time-out was performed to confirm patient ID, procedure to be performed and site of procedure. IV sedation was accomplished with a combination of 2mg of Versed was administered by the RN after DO order, titrated to patient comfort during the course of the procedure while the patient remained responsive to all verbal commands In the prone position, following sterile prep and drape of the lumbar region, the right L4, L5 and S1 anatomical location of the medial branch of the dorsal ramus was identified fluoroscopically. Subsequently an anesthetic skin wheal using 1% lidocaine solution was initiated at each of the anatomical spots. Subsequently then a 22-gauge 3.5-inch spinal needle was atraumatically introduced and advanced under fluoroscopic guidance at each of the corresponding sites at the right L4, L5 and S1 MB. After negative aspiration, 0.2 cc of Isovue 200 was injected, confirming placement without vascular or intrathecal uptake. Subsequently then 0.5 cc of 0.5% Marcaine solution was injected at each of the corresponding sites at the right L4, L5 and S1 medial branch locations. The patient tolerated the procedure well without signs or symptoms of complications. The procedure tolerated the procedure well without signs or symptoms of complications prior to transfer to the recovery area continued monitoring without incident. Post-procedure, the patient was monitored initiating provocative activities to measure the amount of relief from block of the facetogenic pain. The patient reported a VAS of 7 prior to the procedure and a post-procedure VAS of 1. It has been a pleasure to assist in the diagnostic and therapeutic care of your patient. POST OP INSTRUCTIONS The patient was provided with a Pain Log to complete over the next several hours and subsequent days prior to the patient's follow up with the ordering physician. If the patient has aquatic ecologist relief to the solution applied, then they may be a candidate for medial branch rhizotomy. The patient is aware, was provided, once again, with a Pain Log and will follow up with the referring physician for review and clinical correlation.
== END 2023-08-05 11:30 | disposition home or self-care (01) ==
LOC: RAD 09:49
PROVIDERS: PCP Physician Assistant; Referring Provider Physical Medicine & Rehabilitation; Visit Provider Physical Medicine & Rehabilitation
DX: M47.816 Spondylosis without myelopathy or radiculopathy, lumbar region (principal); M47.817 Spondylosis without myelopathy or radiculopathy, lumbosacral region
CPT/HCPCS: 64493; 64494; 99152; J2250

== ENCOUNTER 2023-09-11 09:50 | Outpatient (CLI) | payer MEDICARE, OTHER, SELFPAY ==
[2023-09-11] VITALS (8 sets, daily range): BP systolic 125–162; BP diastolic 61–91; PULSE 53–60; RESP 12–21; TEMP 36.3; O2SAT 97–100
--- NOTE | 2023-09-11 10:15 | DI.RAD.S_ITS ---
PROCEDURE: PAIN L/SI FACET INJ/BLK 1STL INDICATIONS: LUMBAR FACET ARTHOPATHY COMPARISON: [facility], , PAIN L/SI FACET INJ/BLK 1STL, 08/05/2023, 11:54. FINDINGS: Fluoroscopic spot filming was performed to verify placement of spinal needles at the right L4, L5 and S1 level(s), as labeled on the films. Appropriate location(s) of the needle tip(s) was confirmed by injection of iodinated contrast. IMPRESSION: Limited fluoroscopic image demonstrates spinal needles in the region of right L4, L5 and S1. Please see procedural report for details. Dictated by: Asif Freitas M.D. on 09/11/2023 at 13:40 Approved by: Asif Freitas M.D. on 09/11/2023 at 13:41
[2023-09-11] MEDS: MIDAZOLAM 2 MG/2 ML VIAL 1 MG IV (11:01)
[2023-09-11] MEDS: iopamidoL 15 ML VIAL 3 ML INJ (11:06)
[2023-09-11] MEDS: LIDOCAINE 2% INJ SDV 5ML 5 ML INJ (11:07)
--- NOTE | 2023-09-11 11:20 | P.PCN_ITS ---
Date/Time/Diagnoses Date of procedure: 09/11/23 Time of procedure: 11:20 Pre-procedure diagnosis: Lumbar Facet Arthropathy Post-procedure diagnosis: same Procedure Notes Procedure: 1. Right L4, L5 and S1 MB BLOCKS SA Indications: Chrissie is referred by GALINDO Salazar for treatment of Right Axial LBP. Physician: Prabhakar Lucio Total Fluoroscopy time (seconds): 8 Total sedation minutes: 14 Complications: none Procedure in detail & Post-procedure care: DESCRIPTION OF PROCEDURE Fluoroscopically guided, contrast-controlled right L4, L5 and S1 medial branch blocks with 0.5cc of 2% Lidocaine. Following review of allergy and review of potential side effects and complications, including, but not necessarily limited to, infection, allergic reaction, local tissue breakdown, nerve injury, paralysis, stroke and possible , the patient indicated that the patient understood and agreed to proceed. An informed consent document was signed by the patient, witnessed by a nurse, and placed in the patient's chart. After review of previous anaesthesic history and IV conscious sedation the patient was deemed safe to proceed with today?s procedure with IV conscious sedation as ASA class II designation. Safety time-out was performed to confirm patient ID, procedure to be performed and site of procedure. IV sedation was accomplished with a combination of 1mg of Versed was administered by the RN after DO order, titrated to patient comfort during the course of the procedure while the patient remained responsive to all verbal commands In the prone position, following sterile prep and drape of the lumbar region, the right L4, L5 and S1 anatomical location of the medial branch of the dorsal ramus was identified fluoroscopically. Subsequently an anesthetic skin wheal using 1% lidocaine solution was initiated at each of the anatomical spots. Subsequently then a 22-gauge 3.5-inch spinal needle was atraumatically introduced and advanced under fluoroscopic guidance at each of the corresponding sites at the right L4, L5 and S1 MB. After negative aspiration, 0.2 cc of Isovue 200 was injected, confirming placement without vascular or intrathecal uptake. Subsequently then 0.5 cc of 2% Lidocaine solution was injected at each of the corresponding sites at the right L4, L5 and S1 medial branch locations. The patient tolerated the procedure well without signs or symptoms of complications. The procedure tolerated the procedure well without signs or symptoms of complications prior to transfer to the recovery area continued monitoring without incident. Post-procedure, the patient was monitored initiating provocative activities to measure the amount of relief from block of the facetogenic pain. The patient reported a VAS of 7 prior to the procedure and a post-procedure VAS of 1. It has been a pleasure to assist in the diagnostic and therapeutic care of your patient. POST OP INSTRUCTIONS The patient was provided with a Pain Log to complete over the next several hours and subsequent days prior to the patient's follow up with the ordering physician. If the patient has office administrative assistant relief to the solution applied, then they may be a candidate for medial branch rhizotomy. The patient is aware, was provided, once again, with a Pain Log and will follow up with the referring physician for review and clinical correlation.
== END 2023-09-11 11:50 | disposition home or self-care (01) ==
LOC: RAD 09:51
PROVIDERS: PCP Physician Assistant; Referring Provider Physical Medicine & Rehabilitation; Visit Provider Physical Medicine & Rehabilitation
DX: M47.816 Spondylosis without myelopathy or radiculopathy, lumbar region (principal); M47.817 Spondylosis without myelopathy or radiculopathy, lumbosacral region
CPT/HCPCS: 64493; 64494; 99152; J2250

== ENCOUNTER 2023-11-06 10:46 | Outpatient (CLI) | payer MEDICARE, OTHER, SELFPAY ==
[2023-11-06] VITALS (10 sets, daily range): BP systolic 135–183; BP diastolic 60–111; PULSE 54–60; RESP 10–20; O2SAT 96–100
--- NOTE | 2023-11-06 11:15 | DI.RAD.S_ITS ---
PROCEDURE: PAIN L/S MED/LAT N RFA INDICATIONS: Arthropathy COMPARISON: None. FINDINGS: Fluoroscopic spot filming was performed to verify placement of spinal needles at the L4-5 and S1 level(s), as labeled on the films. Appropriate location(s) of the needle tip(s) was confirmed by injection of iodinated contrast. IMPRESSION: Fluoroscopically guided right L4-S1 injection. Dictated by: Neela Romo M.D. on 11/06/2023 at 14:44 Approved by: Neela Romo M.D. on 11/06/2023 at 14:46
[2023-11-06] MEDS: MIDAZOLAM 2 MG/2 ML VIAL 1 MG IV (12:10)
[2023-11-06] MEDS: fentaNYL 100 MCG/2 ML INJ 50 MCG IV (12:10)
[2023-11-06] MEDS: LIDOCAINE 1% 20 ML 5 ML INJ (12:16)
[2023-11-06] MEDS: BUPIVACAINE 0.5% (PF) 10 ML VIAL 5 ML INJ (12:17)
--- NOTE | 2023-11-06 12:41 | P.PCN_ITS ---
Date/Time/Diagnoses Date of procedure: 11/06/23 Time of procedure: 12:41 Pre-procedure diagnosis: 1. RECALCITRANT FACET ARTHROPATHY Post-procedure diagnosis: same Procedure Notes Procedure: 1. RIGHT L4 AND L5 MEDIAL BRANCH RADIOFREQUENCY NEUROTOMY AND RIGHT S1 DORSAL RAMUS BRANCH RADIOFREQUENCY NEUROTOMY Indications: Chrissie is referred by WILLIAM Salazar for treatment of facet arthropathy. Physician: Prabhakar Lucio Total Fluoroscopy time (seconds): 12 Total sedation minutes: 27 Complications: none Procedure in detail & Post-procedure care: DESCRIPTION OF PROCEDURE Right L4 and L5 medial branch radiofrequency neurotomy and right S1 dorsal ramus branch radiofrequency neurotomy under fluoroscopy with conscious sedation. The patient is well known to this clinic having undergone previous facet injections with good but temporary relief. The patient has experienced appropriate, concordant relief with previous facet and median branch blocks but the patient's pain has been recalcitrant to further conservative measures. Therefore, based upon the patient's relief and persistent symptoms, the patient is considered an appropriate candidate for facet rhizotomy. All of the patient's questions regarding the risks versus benefits of the procedure, including, but not limited to, bleeding, infection, temporary as well as lasting nerve injury, paralysis, stroke, and , as well treatment alternatives were answered to satisfaction. After review of previous anaesthesic history and IV conscious sedation the patient was deemed safe to proceed with today?s procedure with IV conscious sedation as ASA class II designation. Safety time-out was performed to confirm patient ID, procedure to be performed and site of procedure. IV sedation was accomplished with a combination of 1mg of Versed and 50mcg of Fentanyl was administered by the RN after DO order, titrated to patient comfort during the course of the procedure while the patient remained responsive to all verbal commands. After obtaining informed consent, denial of pertinent drug allergies, as well as being made aware of the potential risks of bleeding, infection, spinal cord trauma, paralysis, temporary and permanent nerve damage, seizure, stroke, and possible , the patient was brought to the fluoroscopy suite and positioned prone on the fluoroscopy table. The lumbar region was prepped with Betadine and covered with a fenestrated drape in the usual sterile fashion. Appropriate monitors applied including pulse oximeter, pulse, and blood pressure for regular monitoring throughout the procedure. After local infiltration using 1% lidocaine, under fluoroscopic guidance, a 10- cm RF insulated needle with a 10-mm active tip was positioned parallel to the junction of the right sacral ala and the superior articulating process where the S1 dorsal ramus resides. Needle placement was confirmed with sensory stimulation at 50 Hz, with motor stimulation of .5v on the right which produced local stimulation without radicular component. The stimulation was then increased to 2v with, once again, only local multifidus stimulation without radicular component. This was then followed by two discreet lesions performed at 80 degrees Celsius for 90 seconds each. The needle was then removed and the identical procedure was performed along the length of the right L5 medial branch with motor stimulation at .7v on the right. The identical procedure was once again performed along the length of the right L4 medial branch with motor stimulation of .5v on the right. The patient tolerated the procedure well without signs or symptoms of complications prior to transfer to the recovery area continued monitoring without incident. The patient was then transferred to the recovery area where they were observed for an appropriate period of time after the injection. The patient was then transferred to the recovery area where they were observed for an appropriate period of time after the injection. The patient reported a VAS score of 8 prior to the procedure and a post- procedure VAS of 0. POST OP INSTRUCTIONS The patient was provided a Pain Log to continue to record the patient's response to the target-specific procedure prior to the patient's follow-up visit with the referring physician. Additionally, specific post-injection care instructions and a contact number to our office were provided if concerns arise regarding possible complications associated with the procedure are suspected.
== END 2023-11-06 12:57 | disposition home or self-care (01) ==
LOC: RAD 10:46
PROVIDERS: PCP Physician Assistant; Referring Provider Physical Medicine & Rehabilitation; Visit Provider Physical Medicine & Rehabilitation
DX: M47.816 Spondylosis without myelopathy or radiculopathy, lumbar region (principal); M47.817 Spondylosis without myelopathy or radiculopathy, lumbosacral region
CPT/HCPCS: 64494; 64635; 64636; 99152; 99153; J2250; J3010